=== PATIENT | male | born 1945 | race Caucasian/White ===

== ENCOUNTER → 2016-08-06 | Outpatient (CLI) | payer MEDICARE ==
[2016-08-06 09:50] LABS: ALBUMIN/GLOBULIN RATIO 1.33 (1.00-1.93); BILIRUBIN,TOTAL 1.1 MG/DL (0.2-1.0); CALCIUM LEVEL 8.9 MG/DL (8.8-10.2); CREATININE FOR GFR 1.57 MG/DL (0.70-1.30); GLOMERULAR FILTRATION RATE 46.7 (>42)
== END ==
LOC: M WUC 08:04
PROVIDERS: ATTEND Emergency Medicine
DX: E78.2 Mixed hyperlipidemia (principal); I10 Essential (primary) hypertension

== ENCOUNTER → 2016-09-24 | Outpatient (CLI) | payer MEDICARE ==
[~2016-09-24] VITALS: Ht 172.7 cm; Wt 71.2 kg
[~2016-09-24] MED LIST: LIPI20TA PO; LISI-538 PO; NS 1,000 ML IV ONE; PHENYLephrine HCL 500 MCG/5 ML (100MCG/ML) SYRINGE (J2370) As Ordered ONE; PROPOFOL 200 MG/20 ML VIAL As Ordered ONE
--- NOTE | 2016-09-24 08:55 | ROOR ---
Patient Name: Lakeshia Hurtado Procedure Date: 09/24/2016 8:02 AM Date of : 1945 Age: 71 Room: [facility] Gender: Male Note Status: Finalized Procedure: Colonoscopy Indications: Screening for colorectal malignant neoplasm Providers: Eric Ya MD Referring MD: LE PERAZA MD Requesting Provider: Medicines: Monitored Anesthesia Care Complications: No immediate complications. Procedure: Pre-Anesthesia Assessment: - Prior to the procedure, a History and Physical was performed, and patient medications and allergies were reviewed. The patient is competent. The risks and benefits of the procedure and the sedation options and risks were discussed with the patient. All questions were answered and informed consent was obtained. Patient identification and proposed procedure were verified by the physician, the nurse and the anesthesiologist in the endoscopy suite. Mental Status Examination: alert and oriented. Airway Examination: normal oropharyngeal airway and neck mobility. Respiratory Examination: clear to auscultation. CV Examination: normal. Prophylactic Antibiotics: The patient does not require prophylactic antibiotics. Prior Anticoagulants: The patient has taken no previous anticoagulant or antiplatelet agents. ASA Grade Assessment: II - A patient with mild systemic disease. After reviewing the risks and benefits, the patient was deemed in satisfactory condition to undergo the procedure. The anesthesia plan was to use monitored anesthesia care (MAC). Immediately prior to administration of medications, the patient was re-assessed for adequacy to receive sedatives. The heart rate, respiratory rate, oxygen saturations, blood pressure, adequacy of pulmonary ventilation, and response to care were monitored throughout the procedure. The physical status of the patient was re-assessed after the procedure. The Colonoscope was introduced through the anus and advanced to the cecum, identified by appendiceal orifice and ileocecal valve. The colonoscopy was technically difficult and complex. The patient tolerated the procedure well. The quality of the bowel preparation was good. Findings: The perianal and digital rectal examinations were normal. A 30 mm polyp was found in the mid transverse colon. The polyp was multi-lobulated. The polyp was removed with a hot snare. Polyp resection was incomplete. The resected tissue was retrieved. Estimated blood loss was minimal. Area was tattooed with an injection of 3 mL of Ami ink. No additional abnormalities were found on retroflexion. Impression: - One 30 mm polyp in the mid transverse colon, removed with a hot snare. Incomplete resection. Resected tissue retrieved. Tattooed. Recommendation: - Discharge patient to home (ambulatory). - Repeat colonoscopy in 1 month for retreatment. - Return to my office in 2 weeks. Eric Ya MD Eric Ya MD 09/24/2016 8:54:44 AM This report has been signed electronically. Number of Addenda: 0 Note Initiated On: 09/24/2016 8:02 AM Estimated Blood Loss: Estimated blood loss was minimal.
[2016-09-24 09:15] VITALS: BP 111/65
== END | disposition home or self-care (01) ==
LOC: M OPP 07:09
PROVIDERS: ATTEND Surgery
DX: R19.5 Other fecal abnormalities (principal); D12.3 Benign neoplasm of transverse colon; I10 Essential (primary) hypertension; E78.5 Hyperlipidemia, unspecified; R12 Heartburn; M19.90 Unspecified osteoarthritis, unspecified site; N40.0 Benign prostatic hyperplasia without lower urinary tract symptoms; Z79.899 Other long term (current) drug therapy; Z88.1 Allergy status to other antibiotic agents; Z80.6 Family history of leukemia; Z80.0 Family history of malignant neoplasm of digestive organs; Z87.891 Personal history of nicotine dependence
CPT/HCPCS: 45381; 45385; 88305; J2370

== ENCOUNTER 2017-04-16 07:45 | Day surgery (SDC) | payer MEDICARE ==
[~2017-04-16] VITALS: Ht 170.2 cm; Wt 76.7 kg
[~2017-04-16 07:45] MED LIST changes: +ASPI325T24 PO; -NS 1,000 ML IV ONE; -PHENYLephrine HCL 500 MCG/5 ML (100MCG/ML) SYRINGE (J2370) As Ordered ONE; -PROPOFOL 200 MG/20 ML VIAL As Ordered ONE
[2017-04-16] MEDS ORDERED: NS 1,000 ML IV ONE (08:30)
[2017-04-16] MEDS ORDERED: PROPOFOL 200 MG/20 ML VIAL As Ordered ONE ×2 (09:58→10:08)
--- NOTE | 2017-04-16 10:17 | ROOR ---
Patient Name: Lakeshia Hurtado Procedure Date: 04/16/2017 9:36 AM Date of : 1945 Age: 72 Room: [facility] Gender: Male Note Status: Finalized Procedure: Colonoscopy Indications: Therapeutic procedure for known colon mass Providers: Ramakrishna PETERSON MD Referring MD: LE PERAZA MD Requesting Provider: Medicines: Monitored Anesthesia Care Complications: No immediate complications. Procedure: Pre-Anesthesia Assessment: - The heart rate, respiratory rate, oxygen saturations, blood pressure, adequacy of pulmonary ventilation, and response to care were monitored throughout the procedure. The Colonoscope was introduced through the anus and advanced to the cecum, identified by appendiceal orifice and ileocecal valve. The colonoscopy was performed without difficulty. The patient tolerated the procedure well. The quality of the bowel preparation was good. Findings: The perianal and digital rectal examinations were normal. A frond-like/villous and sessile non-obstructing small mass was found in the proximal transverse colon. The mass measured three cm in length. In addition, its diameter measured four mm. The polyp was removed with a piecemeal technique using a hot snare. Polyp resection was incomplete, and the resected tissue was partially retrieved. The exam was otherwise normal throughout the examined colon. Impression: - Likely benign 3-4 cm polypoid lesion in the proximal transverse colon. Tissue was partially removed. Resection was INCOMPLETE. - The colon exam was otherwise normal throughout the examined colon. Recommendation: - If the pathology report is benign, then repeat colonoscopy for repeat piecemeal polypectomy in 4 months for additional endoscopic resection. - If the pathology is significantly dysplastic/malignant, then refer to a surgeon. - Await pathology results. - Telephone endoscopist for pathology results in 2 weeks. - No ibuprofen, naproxen, or other non-steroidal anti-inflammatory drugs for 10 days after polyp removal. Ramakrishna Peterson MD Ramakrishna PETERSON MD 04/16/2017 10:16:52 AM This report has been signed electronically. Number of Addenda: 0 Note Initiated On: 04/16/2017 9:36 AM Estimated Blood Loss: Estimated blood loss: none.
[2017-04-16 10:45] VITALS: BP 100/62
== END 2017-04-16 10:54 | disposition home or self-care (01) ==
LOC: M OPP 07:45
PROVIDERS: ATTEND Internal Medicine Gastroenterology
DX: D49.0 Neoplasm of unspecified behavior of digestive system (principal); K63.89 Other specified diseases of intestine; I10 Essential (primary) hypertension; E78.00 Pure hypercholesterolemia, unspecified; M19.90 Unspecified osteoarthritis, unspecified site; Z79.82 Long term (current) use of aspirin; Z79.899 Other long term (current) drug therapy; Z88.1 Allergy status to other antibiotic agents; Z87.891 Personal history of nicotine dependence

== ENCOUNTER → 2017-05-04 | Outpatient (REF) | payer MEDICARE ==
[2017-05-04 11:35] LABS: BASO % 0.6 % (0.0-1.0); EOS # 0.2 10^3/uL (0.0-0.50); EOS % 2.8 % (0.0-3.0); IMMATURE GRANULOCYTE % 0.3 % (0-0); LYMPH # 1.6 10^3/uL (1.5-4.5); LYMPH % 23.6 % (24.0-44.0); MEAN CORPUSCULAR HEMOGLOBIN 28.5 pg (27.0-33.0); MEAN CORPUSCULAR HGB CONC 32.8 g/dl (32.0-36.5); MEAN CORPUSCULAR VOLUME 86.9 fl (80.0-96.0); MONO # 0.4 10^3/uL (0.0-0.8); MONO % 5.9 % (0.0-5.0); NEUTROPHILS # 4.6 10^3/uL (1.8-7.7); NEUTROPHILS % 66.8 % (36.0-66.0); PLATELET COUNT, AUTOMATED 285 10^3/uL (150-450); RED CELL DISTRIBUTION WIDTH 12.1 % (11.5-14.5); WHITE BLOOD COUNT 6.8 10^3/uL (4.0-10.0)
[2017-05-04 13:01] LABS: CALCIUM LEVEL 8.7 MG/DL (8.8-10.2); CREATININE FOR GFR 1.48 MG/DL (0.70-1.30); GLOMERULAR FILTRATION RATE 49.9 (>42); POTASSIUM SERUM 4.9 MEQ/L (3.5-5.1)
== END ==
LOC: M LABDRAW1 10:22
PROVIDERS: ATTEND Emergency Medicine
DX: C18.4 Malignant neoplasm of transverse colon (principal)

== ENCOUNTER 2017-05-15 06:44 | Inpatient (IN) | payer MEDICARE ==
[2017-05-15] MEDS ORDERED: LIDOCAINE 1% MDV 20ML VIAL SQ (07:00)
[2017-05-15] MEDS: LR 1,000 ML IV ×4 (07:35→23:00)
[2017-05-15] MEDS: ALVIMOPAN 12 MG CAPSULE (ENTEREG) PO (07:35)
[2017-05-15] MEDS: LevoFLOXacin IV 500 MG in APPROPRIATE DILUENT 1 EA IV (07:45)
[2017-05-15] MEDS ORDERED: ROCURONIUM BROMIDE 50 MG/5 ML VIAL As Ordered ×2 (08:22→10:47)
[2017-05-15] MEDS ORDERED: HYDROmorphone HCL 2 MG/ML 1ML VIAL (J1170) As Ordered (08:22)
[2017-05-15] MEDS ORDERED: PROPOFOL 200 MG/20 ML VIAL As Ordered (08:22)
[2017-05-15] MEDS ORDERED: MIDAZOLAM INJ 2 MG/2 ML VIAL (J2250) As Ordered (08:22)
[2017-05-15] MEDS ORDERED: ONDANSETRON 4MG/2ML VIAL (J2405) As Ordered (08:22)
[2017-05-15] MEDS ORDERED: fentaNYL 100 MCG/2 ML INJECTION (J3010) As Ordered (08:22)
[2017-05-15] MEDS ORDERED: NEOSTIGMINE 10 MG/10 ML VIAL (J2710) As Ordered (08:22)
[2017-05-15] MEDS ORDERED: dexameTHASONE 4 MG/ML 1ML VIAL (J1100) As Ordered (08:22)
[2017-05-15] MEDS ORDERED: LIDOCAINE 2% INJ 100 MG/5 ML SDV (FOR ANES.) As Ordered (08:22)
[2017-05-15] MEDS ORDERED: GLYCOPYRROLATE INJ 0.2 MG/ML 2 ML VIAL As Ordered (08:22)
[2017-05-15] MEDS: metroNIDAZOLE 500 MG in APPROPRIATE DILUENT 1 EA IV (09:01)
[2017-05-15] MEDS: LIDOCAINE 1% SDV INJ 30 ML VIAL As Ordered (10:06)
[2017-05-15] MEDS: BUPIVACAINE HCL 0.25% 30 ML VIAL As Ordered ×2 (10:06→12:45)
[2017-05-15] MEDS ORDERED: PHENYLEPHRINE INJ 10MG/ML VIAL (J2370) As Ordered (10:26)
[2017-05-15] MEDS ORDERED: ePHEDrine SULFATE 25 MG/5 ML(5MG/ML) SYRINGE As Ordered (10:26)
[2017-05-15] MEDS: BUPIVACAINE LIPOSOME/PF 1.3% 20 ML VIAL (13.3MG/ML)(EXPAREL) As Ordered (12:45)
[2017-05-15] MEDS ORDERED: MORPHINE 4 MG/ML 1ML SYRINGE IV (13:15)
[2017-05-15] MEDS ORDERED: NORCO, ANEXSIA 5/325MG TABLET (HYDROcodone/ACETAMINOPHEN) PO (13:15)
[2017-05-15] MEDS ORDERED: ONDANSETRON 4MG/2ML VIAL (J2405) IV ×2 (13:15→13:30)
[2017-05-15] MEDS ORDERED: KETOROLAC 30 MG/ML VIAL (J1885) IV (13:15)
[2017-05-15] MEDS ORDERED: ACETAMINOPHEN TAB 650MG DOSE (2X325MG) PO (13:15)
[2017-05-15] MEDS ORDERED: METOCLOPRAMIDE INJ 10MG/2ML VIAL (J2765) IV (13:30)
[2017-05-15] MEDS ORDERED: fentaNYL 100 MCG/2 ML INJECTION (J3010) IV (13:30)
[2017-05-15] MEDS ORDERED: MORPHINE 10 MG/ML 1ML VIAL IV (13:30)
[2017-05-15] MEDS: NORCO, ANEXSIA 5/325MG TABLET (HYDROcodone/ACETAMINOPHEN) PO ×2 (17:38→22:29)
[2017-05-15] MEDS: SENOKOT S TAB PO (21:56)
[2017-05-16 05:25] LABS: HEMATOCRIT 36.2 % (42.0-52.0); HEMOGLOBIN 12.2 g/dl (14.0-18.0); IMMATURE GRANULOCYTE % 0.1 % (0-0); LYMPH # 0.4 10^3/uL (1.5-4.5); LYMPH % 4.6 % (24.0-44.0); MEAN CORPUSCULAR HEMOGLOBIN 28.9 pg (27.0-33.0); MEAN CORPUSCULAR HGB CONC 33.7 g/dl (32.0-36.5); MEAN CORPUSCULAR VOLUME 85.8 fl (80.0-96.0); MONO # 0.6 10^3/uL (0.0-0.8); MONO % 6.9 % (0.0-5.0); NEUTROPHILS # 7.3 10^3/uL (1.8-7.7); NEUTROPHILS % 88.4 % (36.0-66.0); PLATELET COUNT, AUTOMATED 221 10^3/uL (150-450); RED BLOOD COUNT 4.22 10^6/uL (4.30-6.10); RED CELL DISTRIBUTION WIDTH 12.2 % (11.5-14.5); WHITE BLOOD COUNT 8.2 10^3/uL (4.0-10.0)
[2017-05-16 05:40] LABS: ANION GAP 6 MEQ/L (8-16); BLOOD UREA NITROGEN 25 MG/DL (7-18); CALCIUM LEVEL 8.2 MG/DL (8.8-10.2); CARBON DIOXIDE LEVEL 26 MEQ/L (21-32); CHLORIDE LEVEL 108 MEQ/L (98-107); CREATININE FOR GFR 1.44 MG/DL (0.70-1.30); GLOMERULAR FILTRATION RATE 51.5 (>42); GLUCOSE, FASTING 144 MG/DL (83-110); POTASSIUM SERUM 4.7 MEQ/L (3.5-5.1); SODIUM LEVEL 140 MEQ/L (136-145)
[2017-05-16] MEDS: LR 1,000 ML IV ×3 (06:12→22:09)
[2017-05-16] MEDS: ENOXAPARIN 40 MG/0.4 ML SYRINGE (J1650) SC (07:44)
[2017-05-16] MEDS: ATORVASTATIN 20 MG TAB PO (07:45)
[2017-05-16] MEDS: LISINOPRIL 20 MG TAB PO (07:45)
[2017-05-16] MEDS: SENOKOT S TAB PO ×2 (07:45→20:48)
[2017-05-16] MEDS: NORCO, ANEXSIA 5/325MG TABLET (HYDROcodone/ACETAMINOPHEN) PO ×3 (07:46→20:47)
[2017-05-17 05:35] LABS: BASO % 0.1 % (0.0-1.0); HEMATOCRIT 35.9 % (42.0-52.0); IMMATURE GRANULOCYTE % 0.1 % (0-0); LYMPH # 0.8 10^3/uL (1.5-4.5); LYMPH % 9.3 % (24.0-44.0); MEAN CORPUSCULAR HEMOGLOBIN 28.8 pg (27.0-33.0); MEAN CORPUSCULAR HGB CONC 33.4 g/dl (32.0-36.5); MEAN CORPUSCULAR VOLUME 86.3 fl (80.0-96.0); MONO # 0.6 10^3/uL (0.0-0.8); MONO % 6.8 % (0.0-5.0); NEUTROPHILS # 6.8 10^3/uL (1.8-7.7); NEUTROPHILS % 83.7 % (36.0-66.0); PLATELET COUNT, AUTOMATED 225 10^3/uL (150-450); RED BLOOD COUNT 4.16 10^6/uL (4.30-6.10); RED CELL DISTRIBUTION WIDTH 12.3 % (11.5-14.5); WHITE BLOOD COUNT 8.1 10^3/uL (4.0-10.0)
[2017-05-17 05:49] LABS: ANION GAP 9 MEQ/L (8-16); BLOOD UREA NITROGEN 19 MG/DL (7-18); CALCIUM LEVEL 8.4 MG/DL (8.8-10.2); CARBON DIOXIDE LEVEL 28 MEQ/L (21-32); CHLORIDE LEVEL 104 MEQ/L (98-107); CREATININE FOR GFR 1.27 MG/DL (0.70-1.30); GLOMERULAR FILTRATION RATE 59.5 (>42); GLUCOSE, FASTING 97 MG/DL (83-110); POTASSIUM SERUM 4.3 MEQ/L (3.5-5.1); SODIUM LEVEL 141 MEQ/L (136-145)
[2017-05-17] MEDS: LR 1,000 ML IV (06:19)
[2017-05-17] MEDS: SENOKOT S TAB PO ×2 (08:20→21:24)
[2017-05-17] MEDS: ATORVASTATIN 20 MG TAB PO (08:20)
[2017-05-17] MEDS: ENOXAPARIN 40 MG/0.4 ML SYRINGE (J1650) SC (08:21)
[2017-05-17] MEDS: LISINOPRIL 20 MG TAB PO (08:21)
[2017-05-18 06:36] LABS: BASO % 0.1 % (0.0-1.0); EOS % 0.1 % (0.0-3.0); HEMATOCRIT 36.8 % (42.0-52.0); HEMOGLOBIN 12.2 g/dl (14.0-18.0); IMMATURE GRANULOCYTE % 0.4 % (0-0); LYMPH # 1.1 10^3/uL (1.5-4.5); LYMPH % 14.7 % (24.0-44.0); MEAN CORPUSCULAR HEMOGLOBIN 28.7 pg (27.0-33.0); MEAN CORPUSCULAR HGB CONC 33.2 g/dl (32.0-36.5); MEAN CORPUSCULAR VOLUME 86.6 fl (80.0-96.0); MONO # 0.6 10^3/uL (0.0-0.8); MONO % 7.1 % (0.0-5.0); NEUTROPHILS % 77.6 % (36.0-66.0); PLATELET COUNT, AUTOMATED 231 10^3/uL (150-450); RED BLOOD COUNT 4.25 10^6/uL (4.30-6.10); WHITE BLOOD COUNT 7.8 10^3/uL (4.0-10.0)
[2017-05-18 07:05] LABS: ANION GAP 7 MEQ/L (8-16); BLOOD UREA NITROGEN 19 MG/DL (7-18); CALCIUM LEVEL 8.6 MG/DL (8.8-10.2); CARBON DIOXIDE LEVEL 29 MEQ/L (21-32); CHLORIDE LEVEL 103 MEQ/L (98-107); CREATININE FOR GFR 1.34 MG/DL (0.70-1.30); GLOMERULAR FILTRATION RATE 55.9 (>42); GLUCOSE, FASTING 89 MG/DL (83-110); POTASSIUM SERUM 4.1 MEQ/L (3.5-5.1); SODIUM LEVEL 139 MEQ/L (136-145)
[2017-05-18] MEDS: ATORVASTATIN 20 MG TAB PO (09:43)
[2017-05-18] MEDS: SENOKOT S TAB PO (09:43)
[2017-05-18] MEDS: LISINOPRIL 20 MG TAB PO (09:45)
[2017-05-18] MEDS: ENOXAPARIN 40 MG/0.4 ML SYRINGE (J1650) SC (09:47)
== END 2017-05-18 10:38 | disposition home or self-care (01) | DRG 331 ==
LOC: M OR 06:44 → M MSPAV 14:23
PROC: 0DBL0ZZ Excision of Transverse Colon, Open Approach (ICD-10-PCS; principal; 2017-05-15 09:00)
DX: D12.6 Benign neoplasm of colon, unspecified (principal); Z79.899 Other long term (current) drug therapy; Z88.1 Allergy status to other antibiotic agents

== ENCOUNTER → 2018-06-09 | Outpatient (CLI) | payer MEDICARE ==
[~2018-06-09] MED LIST changes: -ASPI325T24 PO; +ASPI325T25 PO; +NORCOTAB PO
--- NOTE | 2018-06-09 17:44 | REP ---
CT ABDOMEN AND PELVIS WITHOUT CONTRAST: CT abdomen and pelvis was performed without oral or IV contrast. Sagittal and coronal reconstruction images are performed. Visualized lung bases demonstrate mild interstitial fibrotic change. The liver, gallbladder, spleen, adrenals and pancreas are grossly unremarkable. There are multiple bilateral renal cysts present. There is left renal atrophy. There is no hydronephrosis or renal calculus. Moderate atherosclerotic calcification is seen of the abdominal aorta. There is fusiform aneurysmal dilatation of the infrarenal portion of the abdominal aorta. Maximum AP diameter is 4.1 cm. This extends for a length of about 5 cm. There is no adenopathy. There is no free air or free fluid. There is no bowel wall thickening. Multiple metallic clips are seen in the upper abdomen. No pelvic mass is seen. Urinary bladder is not well distended and not optimally evaluated. There is a small inguinal hernia containing fat. IMPRESSION: Fusiform aneurysmal dilatation of the distal abdominal aorta has a maximum AP diameter of 4.1 cm. This extends for a length of about 5 cm. Multiple bilateral renal cysts with left renal atrophy. Small left inguinal hernia contains fat. Electronically Signed by Bandar Lundberg MD 06/10/2018 07:41 P
== END ==
LOC: M RAD 14:42
PROVIDERS: ATTEND Surgery Vascular Surgery
DX: I71.4 Abdominal aortic aneurysm, without rupture (principal); N28.1 Cyst of kidney, acquired; K40.90 Unilateral inguinal hernia, without obstruction or gangrene, not specified as recurrent; N26.1 Atrophy of kidney (terminal)

== ENCOUNTER 2018-07-13 08:24 | Day surgery (SDC) | payer MEDICARE ==
[~2018-07-13] VITALS: Ht 170.2 cm; Wt 73.5 kg
[~2018-07-13 08:24] MED LIST changes: +AMLO10TA5 PO; +ANTA500C PO; +ASPI1TAB20 PO; +LISI10TA4 PO; +OMEP40CA2 PO
[2018-07-13] MEDS ORDERED: NS 1,000 ML IV ONE (08:45)
[2018-07-13] MEDS ORDERED: PROPOFOL 200 MG/20 ML VIAL As Ordered ONE (09:28)
[2018-07-13] MEDS ORDERED: LIDOCAINE 2% INJ 100 MG/5 ML SDV (FOR ANES.) As Ordered ONE (09:28)
[2018-07-13] MEDS ORDERED: PHENYLephrine HCL 500 MCG/5 ML (100MCG/ML) SYRINGE (J2370) As Ordered ONE (09:52)
--- NOTE | 2018-07-13 10:03 | ROOR ---
Patient Name: Lakeshia Hurtado Procedure Date: 07/13/2018 9:38 AM Date of : 1945 Age: 73 Room: [facility] Gender: Male Note Status: Finalized Procedure: Colonoscopy Indications: High risk colon cancer surveillance: Personal history of colon cancer, Last colonoscopy: March 2017 Providers: Ramakrishna PETERSON MD Referring MD: Ramila Agarwal MD Requesting Provider: Medicines: Monitored Anesthesia Care Complications: No immediate complications. Procedure: Pre-Anesthesia Assessment: - The heart rate, respiratory rate, oxygen saturations, blood pressure, adequacy of pulmonary ventilation, and response to care were monitored throughout the procedure. The Colonoscope was introduced through the anus and advanced to the ileocolonic anastomosis. The colonoscopy was performed without difficulty. The patient tolerated the procedure well. The quality of the bowel preparation was good. Findings: The perianal and digital rectal examinations were normal. Two sessile polyps were found in the rectum and sigmoid colon. The polyps were 4 to 5 mm in size. These polyps were removed with a cold snare. Resection and retrieval were complete. There was evidence of a prior functional end-to-end ileo-colonic anastomosis in the mid transverse colon. This was patent and was characterized by healthy appearing mucosa. The anastomosis was traversed. Small Internal Hemorrhoids. Impression: - Two 4 to 5 mm polyps in the rectum and in the sigmoid colon, removed with a cold snare. Resected and retrieved. - Small Internal Hemorrhoids. - Patent functional end-to-end ileo-colonic anastomosis, characterized by healthy appearing mucosa. Recommendation: - Repeat colonoscopy in 3 years for surveillance based on personal history of colon cancer. Ramakrishna Peterson MD Ramakrishna PETERSON MD 07/13/2018 10:02:51 AM This report has been signed electronically. Number of Addenda: 0 Note Initiated On: 07/13/2018 9:38 AM Estimated Blood Loss: Estimated blood loss: none.
[2018-07-13 10:20] VITALS: BP 118/55
== END 2018-07-13 10:29 | disposition home or self-care (01) ==
LOC: M OPP 08:24
PROVIDERS: ATTEND Internal Medicine Gastroenterology
DX: K62.1 Rectal polyp (principal); Z08 Encounter for follow-up examination after completed treatment for malignant neoplasm; Z85.038 Personal history of other malignant neoplasm of large intestine; D12.5 Benign neoplasm of sigmoid colon; Z98.0 Intestinal bypass and anastomosis status; K64.8 Other hemorrhoids; Z79.82 Long term (current) use of aspirin; Z79.899 Other long term (current) drug therapy; Z88.8 Allergy status to other drugs, medicaments and biological substances; Z85.46 Personal history of malignant neoplasm of prostate; I71.4 Abdominal aortic aneurysm, without rupture
CPT/HCPCS: 45385; 88305; J2370

== ENCOUNTER → 2019-01-11 | Outpatient (CLI) | payer MEDICARE ==
[~2019-01-11] MED LIST changes: -ANTA500C PO; +ASPI-255 PO; +ASPI-524 PO; -ASPI1TAB20 PO; -ASPI325T25 PO; +CALC1CHW3 PO; +HYDR-3715 PO; -NORCOTAB PO
--- NOTE | 2019-01-11 08:39 | REP ---
Abdominal aorta ultrasound: Abdominal Aortic Measurements are as follows: Proximal 2.2 cm AP 2.2 cm TRV Renal Artery Level obscured cm AP obscured cm TRV Mid Aorta 4.2 cm AP 4.3 cm TRV Distal Aorta 1.6 cm AP 2.1 cm TRV R Iliac Artery 1.0 cm AP 1.1 cm TRV L Iliac Artery 1.0 cm AP 1.1 cm TRV There is an aneurysm of the mid abdominal aorta measuring 0.2 cm AP by 4.3 cm transverse and spanning a craniocaudad length of 6.6 cm. Electronically Signed by Bandar Pedraza MD 01/11/2019 08:30 A
== END ==
LOC: M RAD 07:57
PROVIDERS: ATTEND Surgery Vascular Surgery
DX: I71.4 Abdominal aortic aneurysm, without rupture (principal)

== ENCOUNTER 2019-02-17 10:58 | Day surgery (SDC) | payer MEDICARE ==
[~2019-02-17] VITALS: Ht 170.2 cm; Wt 73.5 kg
[~2019-02-17 10:58] MED LIST changes: -ASPI-524 PO; +ASPI325T57 PO; +BALANCED SALT IRRIGATION SOLUTION 500ML BAG (FOR OR EYE MACHINE) As Ordered ONE; +DUOVISC (0.50ML VISCOAT/0.55ML PROVISC) OPHTH KIT As Ordered ONE; +LIDOCAINE 0.75%/EPINEPHRINE 0.025% IN BSS 0.8ML SYR INTRACAMERAL--OR ONLY As Ordered ONE; +MIDAZOLAM INJ 2 MG/2 ML VIAL (J2250) As Ordered ONE; +OFLOXACIN 0.3 % (OCUFLOX) OPTH SOL 5ML OS ONE; +PHENYLEPHRINE 2.5% OPHTH SOL 2ML OS ONE; +POVIDONE-IODINE 5% OPHTH PREP SOL 30ML As Ordered ONE; +PROPARACAINE 0.5% OPHTH SOL 15ML OS ONE; +TROPICAMIDE 1% OPHTH SOLN 2ML OS ONE; +fentaNYL 100 MCG/2 ML INJECTION (J3010) As Ordered ONE
[2019-02-17 14:00] VITALS: BP 127/68
--- NOTE | 2019-02-22 17:59 | RO ---
DATE OF PROCEDURE: 02/17/2019 PREOPERATIVE DIAGNOSIS: 1. Visually significant nuclear sclerotic cataract right eye. POSTOPERATIVE DIAGNOSIS: 1. Visually significant nuclear sclerotic cataract right eye. PROCEDURE: 1. Cataract extraction with use of phacoemulsification and placement of intraocular lens, AU00T0, 24.5 D, right eye. SURGEON: Chuy Jeffrey DO LAST SORTER: None. ANESTHESIA: Local with monitored anesthesia care (MAC). COMPLICATIONS: None. POSTOPERATIVE CONDITION: Stable. INDICATIONS FOR SURGERY: 1. Blurred vision affecting patients activities of daily living. DESCRIPTION OF PROCEDURE: The patient was seen in the preoperative area and properly identified. The correct operative eye was identified and marked. The patient received topical anesthetic, antibiotics, and topical dilating drops. The patient was then transferred to the operating room. The correct side was re-identified, and a time-out was performed. The eye was prepped and draped in a sterile fashion. The eyelids were isolated with Tegaderm tape, and the lids were held open with an adjustable speculum. A 1.0 mm paracentesis incision was made. Intraocular preservative-free Shugarcaine was then injected into the anterior chamber. Viscoelastic was then injected into the anterior chamber through the paracentesis. Using a 2.4 mm sharp-tipped keratome, the anterior chamber was entered via a temporal clear cornea incision. A continuous curvilinear capsulorrhexis was created with Utrata forceps. Hydrodissection was performed with balanced salt solution (BSS) on a blunt cannula until the nucleus was able to rotate freely. The crystalline lens was phacoemulsified and aspirated. Irrigation/aspiration was used to remove the cortical material. Cohesive viscoelastic was placed into the capsular bag to deepen it. The implant was placed into the capsular bag and allowed to unfold. Placement was confirmed by visualizing the anterior capsulorrhexis. Irrigation/aspiration was used to remove the viscoelastic. The clear corneal incision was hydrated with BSS on a blunt cannula. The lens was well positioned. The incisions were then tested for leaks and found to be negative. The eye was then palpated for appropriate pressure and adjusted accordingly with BSS. The eyelid speculum was then carefully removed. A shield was placed over the eye. The patient tolerated the procedure well and was discharged to the recovery unit in a stable condition.
== END 2019-02-17 14:15 | disposition home or self-care (01) ==
LOC: M SDC 10:58
PROVIDERS: ATTEND Ophthalmology
DX: H25.11 Age-related nuclear cataract, right eye (principal); I10 Essential (primary) hypertension; I71.4 Abdominal aortic aneurysm, without rupture; Z79.899 Other long term (current) drug therapy; Z85.46 Personal history of malignant neoplasm of prostate; K21.9 Gastro-esophageal reflux disease without esophagitis; Z87.891 Personal history of nicotine dependence; Z88.1 Allergy status to other antibiotic agents; Z88.8 Allergy status to other drugs, medicaments and biological substances
CPT/HCPCS: 66984; J2250; J3010; V2632

== ENCOUNTER → 2019-02-28 | Outpatient (CLI) | payer MEDICARE ==
[~2019-02-28] MED LIST changes: -BALANCED SALT IRRIGATION SOLUTION 500ML BAG (FOR OR EYE MACHINE) As Ordered ONE; -DUOVISC (0.50ML VISCOAT/0.55ML PROVISC) OPHTH KIT As Ordered ONE; -LIDOCAINE 0.75%/EPINEPHRINE 0.025% IN BSS 0.8ML SYR INTRACAMERAL--OR ONLY As Ordered ONE; -MIDAZOLAM INJ 2 MG/2 ML VIAL (J2250) As Ordered ONE; -OFLOXACIN 0.3 % (OCUFLOX) OPTH SOL 5ML OS ONE; -OMEP40CA2 PO; +OMEP40CA97 PO; -PHENYLEPHRINE 2.5% OPHTH SOL 2ML OS ONE; -POVIDONE-IODINE 5% OPHTH PREP SOL 30ML As Ordered ONE; -PROPARACAINE 0.5% OPHTH SOL 15ML OS ONE; -TROPICAMIDE 1% OPHTH SOLN 2ML OS ONE; -fentaNYL 100 MCG/2 ML INJECTION (J3010) As Ordered ONE
[2019-02-28 09:18] LABS: BASO # 0.1 10^3/uL (0.0-0.2); BASO % 0.8 % (0.0-1.0); EOS # 0.5 10^3/uL (0.0-0.5); EOS % 7.2 % (0.0-3.0); HEMATOCRIT 43.8 % (42.0-52.0); HEMOGLOBIN 14.1 g/dl (13.5-17.5); LYMPH # 1.8 10^3/uL (1.5-5.0); LYMPH % 27.9 % (24.0-44.0); MEAN CORPUSCULAR HGB CONC 32.2 g/dl (32.0-36.5); MEAN CORPUSCULAR VOLUME 86.9 fl (80.0-96.0); MONO # 0.5 10^3/uL (0.0-0.8); NEUTROPHILS # 3.6 10^3/uL (1.5-8.5); NEUTROPHILS % 55.9 % (36.0-66.0); PLATELET COUNT, AUTOMATED 221 10^3/uL (150-450); RED BLOOD COUNT 5.04 10^6/uL (4.30-6.10); WHITE BLOOD COUNT 6.4 10^3/uL (4.0-10.0)
[2019-02-28 09:24] LABS: ALBUMIN 4.2 GM/DL (3.2-5.2); BILIRUBIN,TOTAL 1.1 MG/DL (0.2-1.0); CALCIUM LEVEL 9.1 MG/DL (8.8-10.2); CHOLESTEROL RISK RATIO 2.867 (<5); CREATININE FOR GFR 1.82 MG/DL (0.70-1.30); GLOMERULAR FILTRATION RATE 39.1 (>42); POTASSIUM SERUM 4.8 MEQ/L (3.5-5.1); TOTAL PROTEIN 7.4 GM/DL (6.4-8.2)
[2019-02-28 10:12] LABS: HEMOGLOBIN A1c 6.1 %
== END ==
LOC: M WUC 08:03
PROVIDERS: ATTEND Physician Assistant
DX: N18.3 Chronic kidney disease, stage 3 (moderate) (principal); C18.4 Malignant neoplasm of transverse colon; R73.01 Impaired fasting glucose; E78.2 Mixed hyperlipidemia

== ENCOUNTER 2019-04-28 08:24 | Day surgery (SDC) | payer MEDICARE ==
[~2019-04-28] VITALS: Ht 170.2 cm; Wt 72.2 kg
[~2019-04-28 08:24] MED LIST changes: +BALANCED SALT IRRIGATION SOLUTION 500ML BAG (FOR OR EYE MACHINE) As Ordered ONE; +DUOVISC (0.50ML VISCOAT/0.55ML PROVISC) OPHTH KIT As Ordered ONE; +LIDOCAINE 0.75%/EPINEPHRINE 0.025% IN BSS 0.8ML SYR INTRACAMERAL--OR ONLY As Ordered ONE; +LIDOCAINE 1% MDV 20ML VIAL SQ PRN; +OFLOXACIN 0.3 % (OCUFLOX) OPTH SOL 5ML OS ONE; +PHENYLEPHRINE 2.5% OPHTH SOL 2ML OS ONE; +POVIDONE-IODINE 5% OPHTH PREP SOL 30ML As Ordered ONE; +PROPARACAINE 0.5% OPHTH SOL 15ML OS ONE; +TROPICAMIDE 1% OPHTH SOLN 2ML OS ONE
[2019-04-28] MEDS ORDERED: MIDAZOLAM INJ 2 MG/2 ML VIAL (J2250) As Ordered ONE (10:04)
[2019-04-28] MEDS ORDERED: fentaNYL 100 MCG/2 ML INJECTION (J3010) As Ordered ONE (10:04)
[2019-04-28 11:20] VITALS: BP 108/59
--- NOTE | 2019-04-29 22:46 | RO ---
DATE OF PROCEDURE: 04/28/2019 PREOPERATIVE DIAGNOSIS: 1. Visually significant nuclear sclerotic cataract left eye. POSTOPERATIVE DIAGNOSIS: 1. Visually significant nuclear sclerotic cataract left eye. PROCEDURE: 1. Cataract extraction with use of phacoemulsification and placement of intraocular lens, AU00T0, 25.5 D, left eye. SURGEON: Chuy Jeffrey DO SOFTWARE SALES REPRESENTATIVE: None. ANESTHESIA: Local with monitored anesthesia care (MAC). COMPLICATIONS: None. POSTOPERATIVE CONDITION: Stable. INDICATIONS FOR SURGERY: 1. Blurred vision affecting patients activities of daily living. DESCRIPTION OF PROCEDURE: The patient was seen in the preoperative area and properly identified. The correct operative eye was identified and marked. The patient received topical anesthetic, antibiotics, and topical dilating drops. The patient was then transferred to the operating room. The correct side was re-identified, and a time-out was performed. The eye was prepped and draped in a sterile fashion. The eyelids were isolated with Tegaderm tape, and the lids were held open with an adjustable speculum. A 1.0 mm paracentesis incision was made. Intraocular preservative-free Shugarcaine was then injected into the anterior chamber. Viscoelastic was then injected into the anterior chamber through the paracentesis. Using a 2.4 mm sharp-tipped keratome, the anterior chamber was entered via a temporal clear cornea incision. A continuous curvilinear capsulorrhexis was created with Utrata forceps. Hydrodissection was performed with balanced salt solution (BSS) on a blunt cannula until the nucleus was able to rotate freely. The crystalline lens was phacoemulsified and aspirated. Irrigation/aspiration was used to remove the cortical material. Cohesive viscoelastic was placed into the capsular bag to deepen it. The implant was placed into the capsular bag and allowed to unfold. Placement was confirmed by visualizing the anterior capsulorrhexis. Irrigation/aspiration was used to remove the viscoelastic. The clear corneal incision was hydrated with BSS on a blunt cannula. The lens was well positioned. The incisions were then tested for leaks and found to be negative. The eye was then palpated for appropriate pressure and adjusted accordingly with BSS. The eyelid speculum was then carefully removed. A shield was placed over the eye. The patient tolerated the procedure well and was discharged to the recovery unit in a stable condition.
== END 2019-04-28 11:32 | disposition home or self-care (01) ==
LOC: M SDC 08:24
PROVIDERS: ATTEND Ophthalmology
DX: H25.12 Age-related nuclear cataract, left eye (principal); I10 Essential (primary) hypertension; E78.5 Hyperlipidemia, unspecified; K21.9 Gastro-esophageal reflux disease without esophagitis; I71.4 Abdominal aortic aneurysm, without rupture; Z85.46 Personal history of malignant neoplasm of prostate; Z88.1 Allergy status to other antibiotic agents; Z88.5 Allergy status to narcotic agent; Z79.899 Other long term (current) drug therapy
CPT/HCPCS: 66984; J2250; J3010; V2632

== ENCOUNTER → 2019-08-01 | Outpatient (CLI) | payer BC, MEDICARE ==
[~2019-08-01] MED LIST changes: -BALANCED SALT IRRIGATION SOLUTION 500ML BAG (FOR OR EYE MACHINE) As Ordered ONE; -DUOVISC (0.50ML VISCOAT/0.55ML PROVISC) OPHTH KIT As Ordered ONE; -LIDOCAINE 0.75%/EPINEPHRINE 0.025% IN BSS 0.8ML SYR INTRACAMERAL--OR ONLY As Ordered ONE; -LIDOCAINE 1% MDV 20ML VIAL SQ PRN; -OFLOXACIN 0.3 % (OCUFLOX) OPTH SOL 5ML OS ONE; -PHENYLEPHRINE 2.5% OPHTH SOL 2ML OS ONE; -POVIDONE-IODINE 5% OPHTH PREP SOL 30ML As Ordered ONE; -PROPARACAINE 0.5% OPHTH SOL 15ML OS ONE; -TROPICAMIDE 1% OPHTH SOLN 2ML OS ONE
--- NOTE | 2019-08-01 11:27 | REP ---
ABDOMINAL AORTIC SONOGRAPHY: HISTORY: Abdominal aortic aneurysm without rupture. COMPARISON STUDY: January 11, 2019 FINDINGS: The abdominal aorta measures 2.2 x 2.6 cm in AP by transverse dimension proximally at the diaphragmatic hiatus. Bowel gas obscures the aorta at the level of the main renal arteries. At mid aortic level, there is a 4.3 x 4.2 cm AP by transverse abdominal aortic aneurysm. This measures 6.5 cm in length and is felt to be unchanged from the comparison study. Right and left common iliac arteries measure 1.9 and 1.4 cm in AP dimension, respectively. The study is felt to be essentially unchanged from the comparison exam. IMPRESSION: 4.2 x 5.0 cm infrarenal abdominal aortic aneurysm, essentially unchanged. Electronically Signed by Ronny Chu MD 08/01/2019 12:36 P
== END ==
LOC: M RAD 07:55
PROVIDERS: ATTEND Physician Assistant
DX: I71.4 Abdominal aortic aneurysm, without rupture (principal)

== ENCOUNTER → 2020-02-08 | Outpatient (CLI) | payer BC, MEDICARE ==
[~2020-02-08] MED LIST changes: -AMLO10TA5 PO; +AMLO1TAB25 PO
--- NOTE | 2020-02-16 10:54 | REP ---
CT ABDOMEN AND PELVIS WITHOUT IV OR ORAL CONTRAST HISTORY: Abdominal aortic aneurysm without rupture. Comparison CT study June 09, 2018. CT FINDINGS: Preliminary digital job coach radiograph demonstrates an unremarkable bowel gas pattern. The liver is normal in size, homogeneous in texture. The spleen is unremarkable. Gallbladder and pancreas show no abnormality. No adrenal mass lesion is observed. There are bilateral renal cortical cysts. There is a hyperdense cortical cyst in the right kidney posteriorly measuring 1.3 cm in diameter. The largest cyst is a peripheral cyst on the left measuring 5.3 cm in diameter. These findings are essentially unchanged. No hydronephrosis is evident. There is an infrarenal abdominal aortic aneurysm again seen measuring 4.1 cm in greatest anteroposterior dimension. This is unchanged from the June 09, 2018, study. No perianeurysmal fibrosis or hemorrhage is seen. There are surgical clips in the right mid abdomen mesentery, and a right colon resection has been performed with anastomosis to the transverse colon. No large or small bowel mass is seen. No evidence of obstruction. Seminal vesicles, prostate, and urinary bladder are unremarkable. No abdominal wall defect is seen. There is a hydrocele in the left scrotum. No bony destructive lesion is appreciated. IMPRESSION: 4.1 cm infrarenal abdominal aortic aneurysm unchanged from the comparison CT study June 09, 2018. Status post right colon resection. Multiple renal cysts. MTDD
--- NOTE | 2020-02-16 10:54 | REP ---
CT STUDY CHEST WITHOUT CONTRAST HISTORY: Abdominal aortic aneurysm without rupture. COMPARISON CHEST CT: None. CT FINDINGS: Digital preliminary boiler engineer radiograph demonstrates hyperinflated lungs. Emphysematous changes are noted in the upper lobes and to a lesser extent the lower lobes. There is pleural parenchymal fibrosis and subsegmental atelectasis in the right middle lobe. There is peribronchial thickening consistent with bronchitis and there are some areas of inspissated endobronchial secretions in the lower lobes bilaterally. No mass or infiltrate is appreciated. There is no evidence of mediastinal adenopathy or hilar adenopathy. There are minimal vascular calcifications in the aortic arch. No aneurysm is seen. The ascending aortic dimension is 3.6 cm anterior to posterior. This is measured at the level of the right main pulmonary artery. The descending aorta at this level measures 2.9 cm. No aneurysm is visible. No extrathoracic mass or adenopathy is observed. Bone window settings show no bony destructive lesion. IMPRESSION: Emphysematous changes and changes consistent with bronchitis. No evidence of thoracic aortic aneurysm. MTDD
== END ==
LOC: M RAD 09:33
PROVIDERS: ATTEND Physician Assistant
DX: I71.4 Abdominal aortic aneurysm, without rupture (principal)

== ENCOUNTER → 2020-04-05 | Outpatient (CLI) | payer BC, MEDICARE ==
[2020-04-05 10:02] LABS: BASO % 0.6 % (0.0-1.0); EOS # 0.3 10^3/uL (0.0-0.5); EOS % 4.1 % (0.0-3.0); HEMATOCRIT 41.9 % (42.0-52.0); HEMOGLOBIN 12.5 g/dl (13.5-17.5); LYMPH # 2.1 10^3/uL (1.5-5.0); LYMPH % 29.2 % (24.0-44.0); MEAN CORPUSCULAR HEMOGLOBIN 25.5 pg (27.0-33.0); MEAN CORPUSCULAR HGB CONC 29.8 g/dl (32.0-36.5); MEAN CORPUSCULAR VOLUME 85.3 fl (80.0-96.0); MONO # 0.7 10^3/uL (0.0-0.8); MONO % 9.5 % (0.0-5.0); NEUTROPHILS # 4.1 10^3/uL (1.5-8.5); NEUTROPHILS % 56.2 % (36.0-66.0); PLATELET COUNT, AUTOMATED 238 10^3/uL (150-450); RED BLOOD COUNT 4.91 10^6/uL (4.30-6.10); WHITE BLOOD COUNT 7.3 10^3/uL (4.0-10.0)
[2020-04-05 10:25] LABS: ALBUMIN 3.9 GM/DL (3.2-5.2); BILIRUBIN,TOTAL 0.9 MG/DL (0.2-1.0); CALCIUM LEVEL 8.8 MG/DL (8.8-10.2); CHOLESTEROL RISK RATIO 3.326 (<5); CREATININE FOR GFR 1.97 MG/DL (0.70-1.30); GLOMERULAR FILTRATION RATE 35.6 (>42); POTASSIUM SERUM 4.8 MEQ/L (3.5-5.1); TOTAL PROTEIN 7.3 GM/DL (6.4-8.2)
[2020-04-05 10:30] LABS: HEMOGLOBIN A1c 5.9 %
== END ==
LOC: M WUC 08:04
PROVIDERS: ATTEND Physician Assistant
DX: E78.2 Mixed hyperlipidemia (principal); I12.9 Hypertensive chronic kidney disease with stage 1 through stage 4 chronic kidney disease, or unspecified chronic kidney disease; N18.30 Chronic kidney disease, stage 3 unspecified; R73.01 Impaired fasting glucose

== ENCOUNTER → 2020-06-11 | Outpatient (CLI) | payer BC, MEDICARE ==
[~2020-06-11] MED LIST changes: -LISI-538 PO; +LISI10TA22 PO; -LISI10TA4 PO; +LISI20TA33 PO
--- NOTE | 2020-06-11 12:29 | REP ---
INDICATION: SOB. COMPARISON: None. TECHNIQUE: PA and lateral views FINDINGS: The superior mediastinal structures are midline. The cardiac silhouette is unremarkable in size, shape, and position. The diaphragmatic surfaces of the lungs are regular, and the costophrenic angles are clear. The pulmonary burgess are clear. The imaged osseous structures are intact. IMPRESSION: There is no acute cardiopulmonary disease. <Electronically signed by Jeremías Mora > 06/11/20 [id number]
== END ==
LOC: M ADAMS 11:01
PROVIDERS: ATTEND Nurse Practitioner Family
DX: R06.02 Shortness of breath (principal)

== ENCOUNTER → 2020-09-04 | Outpatient (CLI) | payer BC, MEDICARE ==
--- NOTE | 2020-09-04 09:10 | REP ---
INDICATION: AAA. COMPARISON: 02/08/2020 also without intravenous contrast TECHNIQUE: Limited noncontrast enhanced helical CT FINDINGS: There is a new 6 mm size nodule in left lung base. Scattered asymmetric densities are also seen in the lung bases representing a change from the prior exam. Note is again made of cylindrical bronchiectasis. Limited evaluation of the solid intra-organs and gallbladder show no significant changes. Limited evaluation of the pancreas, adrenal glands, and kidneys show no significant changes. There are multiple bilateral renal cysts which appear stable. Limited evaluation of the abdominal aorta shows an infrarenal abdominal aortic aneurysm which measures 4.2 cm in its AP dimension. The aneurysm appears stable in length. There is no evidence of a para aortic abnormality. There is no change in the appearance of the calcific atherosclerotic change. Limited evaluation of the bowel loops and the mesenteries show no significant changes. There is no free fluid or free air. No mass or adenopathy has developed. There is no significant change in the osseous structures. There is evidence of a large left-sided hydrocele or possibly a spermatocele. CT cannot effectively evaluate this area. IMPRESSION: 1. Lung base findings as described above. There is a new nodule in the left lower lobe. Diagnostic CT exam examination of the chest is recommended as per the revised Fleischner society criteria. 2. The infrarenal abdominal aortic aneurysm appears to have increased 1 mm in size. 3. Other findings as described above. Prior testicular ultrasound of 03/14/2019 did show a large left-sided spermatocele. Consider ultrasonographic follow-up. <Electronically signed by Jeremías Mora > 09/04/20 [id number]
== END ==
LOC: M RAD 08:20
PROVIDERS: ATTEND Physician Assistant
DX: I71.4 Abdominal aortic aneurysm, without rupture (principal); R91.1 Solitary pulmonary nodule; N28.1 Cyst of kidney, acquired

== ENCOUNTER → 2020-11-05 | Outpatient (CLI) | payer BC, MEDICARE ==
[~2020-11-05] MED LIST changes: +OMEP40CA4 PO; -OMEP40CA97 PO
== END ==
LOC: M PLARAD 07:24
PROVIDERS: ATTEND Nurse Practitioner Adult Health
DX: R91.8 Other nonspecific abnormal finding of lung field (principal); Z87.891 Personal history of nicotine dependence

== ENCOUNTER → 2020-11-26 | Outpatient (CLI) | payer BC, MEDICARE ==
--- NOTE | 2020-11-26 17:44 | REP ---
INDICATION: DIAGNOSING LUNG MASS. COMPARISON: Comparison chest CT study September 24, 2020.. TECHNIQUE: Sixty-one minutes following the intravenous injection of a 9.04 mCi dose of F-18 FDG, three-dimensional PET scintigraphy is acquired from the skull base to the proximal thighs. Triplanar noncontrast CT scanning is acquired through the same anatomic range for attenuation correction, and image registration with scan parameters optimized to minimize radiation exposure to the patient. PET scintigraphy and CT datasets were fused and displayed on a workstation with multiplanar and projection display capability. FINDINGS: Head and neck soft tissues are unremarkable. There is no abnormal hypermetabolic uptake in the hilar or mediastinal regions. No abnormal pulmonary parenchymal hypermetabolic uptake is seen. The area of curvilinear opacity in the right middle lobe is not hypermetabolic. Maximum standard uptake value here is 1.58. No other abnormal pulmonary parenchymal hypermetabolic uptake is seen. In the abdomen and pelvis, normal hepatic, splenic, gastrointestinal, and genitourinary FDG accumulation is seen. Bilateral renal cortical cysts are observed. There is a left-sided hydrocele. No abnormal hypermetabolic uptake is appreciated. An abdominal aortic aneurysm is noted incidentally measuring 4.2 cm in greatest anteroposterior diameter. IMPRESSION: Negative PET scintigraphy. 4.2 cm infrarenal abdominal aortic aneurysm. Left-sided hydrocele. The nodular opacity seen on recent CT study in the right middle lobe is not hypermetabolic follow-up is advised. <Electronically signed by Juan Chu > 11/26/20 [id number]
== END ==
LOC: M PLARAD 10:21
PROVIDERS: ATTEND Nurse Practitioner Adult Health
DX: R91.8 Other nonspecific abnormal finding of lung field (principal)

== ENCOUNTER → 2021-04-03 | Outpatient (REF) | payer BC, MEDICARE ==
[2021-04-03 13:25] LABS: BILIRUBIN,TOTAL 0.7 MG/DL (0.2-1.0); CALCIUM LEVEL 8.8 MG/DL (8.8-10.2); CHOLESTEROL RISK RATIO 3.608 (<5); CREATININE FOR GFR 1.87 MG/DL (0.70-1.30); GLOMERULAR FILTRATION RATE 37.7 (>42); POTASSIUM SERUM 5.5 MEQ/L (3.5-5.1); TOTAL PROTEIN 7.3 GM/DL (6.4-8.2)
== END ==
LOC: M LABDRWAD 12:16
PROVIDERS: ATTEND Nurse Practitioner Family
DX: I12.9 Hypertensive chronic kidney disease with stage 1 through stage 4 chronic kidney disease, or unspecified chronic kidney disease (principal); E78.2 Mixed hyperlipidemia; N18.30 Chronic kidney disease, stage 3 unspecified

== ENCOUNTER → 2021-05-01 | Outpatient (CLI) | payer BC, MEDICARE ==
--- NOTE | 2021-05-01 15:47 | REP ---
INDICATION: SDBDOMINAL AORTIC ANEURYAM. COMPARISON: Multiple the latest 09/04/2020 also without contrast TECHNIQUE: Standard helical technique without contrast FINDINGS: There are chronic lung base changes status quo. The liver, gallbladder, spleen, pancreas, adrenal glands, and kidneys are unchanged. The infrarenal abdominal aortic aneurysm which measured 4.2 cm on the prior exam does not appear to be significantly changed. Once again, the exam is limited without intravenous contrast administration. There is no significant change in appearance of the bowel loops or the mesenteries. There is a minimal left inguinal hernia status quo. There is no evidence of free fluid or free air. There is no significant change in the osseous structures. IMPRESSION: No significant change. Findings and limitations as described above. <Electronically signed by Jeremías Mora > 05/01/21 [id number]
== END ==
LOC: M RAD 14:51
PROVIDERS: ATTEND Nurse Practitioner Family
DX: I71.4 Abdominal aortic aneurysm, without rupture (principal)

== ENCOUNTER → 2021-09-16 | Outpatient (CLI) | payer BC, MEDICARE ==
[~2021-09-16] MED LIST changes: +ALBU8.5H INH; +INCR1INH INH; +MUCI600T31 PO; +MULTTAB86 PO; +SYMB16INH INH
== END ==
LOC: M LABSMTC 10:20
PROVIDERS: ATTEND Anesthesiology
DX: Z01.812 Encounter for preprocedural laboratory examination (principal); Z20.822 Contact with and (suspected) exposure to COVID-19

== ENCOUNTER 2021-09-20 07:11 | Day surgery (SDC) | payer BC, MEDICARE ==
[~2021-09-20] VITALS: Ht 160 cm; Wt 74.8 kg
[~2021-09-20 07:11] MED LIST changes: +LIDOCAINE 2% 100MG/5ML SDV (FOR ANES.) As Ordered ONE; +NS 1,000 ML IV ONE; +propofoL 200 MG/20 ML VIAL As Ordered ONE
[2021-09-20 08:45] VITALS: BP 124/95
== END 2021-09-20 08:47 | disposition home or self-care (01) ==
LOC: M OPP 07:11
PROVIDERS: ATTEND Internal Medicine Gastroenterology
DX: Z12.11 Encounter for screening for malignant neoplasm of colon (principal); Z85.038 Personal history of other malignant neoplasm of large intestine; Z86.010 Personal history of colon polyps; D12.4 Benign neoplasm of descending colon; K57.30 Diverticulosis of large intestine without perforation or abscess without bleeding; K64.8 Other hemorrhoids; Z79.02 Long term (current) use of antithrombotics/antiplatelets; Z79.51 Long term (current) use of inhaled steroids; Z79.899 Other long term (current) drug therapy; Z88.1 Allergy status to other antibiotic agents; Z88.5 Allergy status to narcotic agent; Z87.891 Personal history of nicotine dependence

== ENCOUNTER → 2021-11-27 | Outpatient (CLI) | payer BC, MEDICARE ==
[~2021-11-27] MED LIST changes: -LIDOCAINE 2% 100MG/5ML SDV (FOR ANES.) As Ordered ONE; -NS 1,000 ML IV ONE; -propofoL 200 MG/20 ML VIAL As Ordered ONE
== END ==
LOC: M PLAIMG 10:26
PROVIDERS: ATTEND Nurse Practitioner Adult Health
DX: J43.9 Emphysema, unspecified (principal); J47.9 Bronchiectasis, uncomplicated; R91.8 Other nonspecific abnormal finding of lung field

== ENCOUNTER → 2022-03-28 | Outpatient (REF) | payer BC, MEDICARE ==
[2022-03-28 13:52] LABS: ALBUMIN 3.9 GM/DL (3.2-5.2); BILIRUBIN,TOTAL 1.2 MG/DL (0.2-1.0); CALCIUM LEVEL 8.6 MG/DL (8.8-10.2); CHOLESTEROL RISK RATIO 2.84 (<5); CREATININE FOR GFR 1.91 MG/DL (0.70-1.30); GLOMERULAR FILTRATION RATE 36.7 (>42); POTASSIUM SERUM 5.4 MEQ/L (3.5-5.1); TOTAL PROTEIN 6.9 GM/DL (6.4-8.2)
== END ==
LOC: M LABDRWAD 12:30
PROVIDERS: ATTEND Nurse Practitioner Family
DX: I10 Essential (primary) hypertension (principal); E78.2 Mixed hyperlipidemia

== ENCOUNTER → 2022-05-16 | Outpatient (CLI) | payer BC, MEDICARE | LOC: M RAD 08:18 | PROVIDERS: ATTEND Surgery | DX: I71.40 Abdominal aortic aneurysm, without rupture, unspecified (principal) ==

== ENCOUNTER → 2022-11-04 | Outpatient (CLI) | payer BC, MEDICARE | LOC: M RAD 14:58 | PROVIDERS: ATTEND Nurse Practitioner Family | DX: C67.9 Malignant neoplasm of bladder, unspecified (principal); N50.3 Cyst of epididymis; N44.2 Benign cyst of testis; N43.3 Hydrocele, unspecified ==

== ENCOUNTER → 2022-12-02 | Outpatient (CLI) | payer BC, MEDICARE | LOC: M ADAMS 07:38 | PROVIDERS: ATTEND Nurse Practitioner Adult Health | DX: R91.8 Other nonspecific abnormal finding of lung field (principal); J43.9 Emphysema, unspecified ==

== ENCOUNTER → 2023-02-02 | Outpatient (REF) | payer BC, MEDICARE ==
[~2023-02-02] MED LIST changes: +HYDR-3910 PO; +LISI10TA24 PO
[2023-02-02 15:11] LABS: APPEARANCE, URINE CLEAR (CLEAR); BACTERIA, URINE AUTO NEGATIVE (NEGATIVE); BILIRUBIN, URINE AUTO NEGATIVE (NEGATIVE); BLOOD, URINE BLOOD NEGATIVE (NEGATIVE); COLOR, URINE YELLOW (YELLOW); GLUCOSE, URINE (UA) AUTO NEGATIVE (NEGATIVE); HEMATOCRIT 34.5 % (42.0-52.0); HEMOGLOBIN 10.3 g/dl (13.5-17.5); KETONE, URINE AUTO NEGATIVE (NEGATIVE); LEUKOCYTE ESTERASE, URINE AUTO TRACE (NEGATIVE); MEAN CORPUSCULAR HEMOGLOBIN 25.2 pg (27.0-33.0); MEAN CORPUSCULAR HGB CONC 29.9 g/dl (32.0-36.5); MEAN CORPUSCULAR VOLUME 84.6 fl (80.0-96.0); NITRITE, URINE AUTO NEGATIVE (NEGATIVE); PLATELET COUNT, AUTOMATED 347 10^3/uL (150-450); PROTEIN, URINE AUTO NEGATIVE (NEGATIVE); RBC, URINE AUTO 0 /HPF (0-3); RED BLOOD COUNT 4.08 10^6/uL (4.30-6.10); SPECIFIC GRAVITY URINE AUTO 1.008 (1.002-1.035); SQUAMOUS EPITHELIAL CELL UR AU 0 /HPF (0-6); UROBILINOGEN, URINE AUTO 0.2 mg/dL (0.0-2.0); WBC, URINE AUTO 2 /HPF (0-3); WHITE BLOOD COUNT 6.5 10^3/uL (4.0-10.0)
[2023-02-02 15:42] LABS: CALCIUM LEVEL 8.4 MG/DL (8.3-10.6); CREATININE FOR GFR 1.57 MG/DL (0.70-1.30)
== END ==
LOC: M LABDRWAD 14:12
PROVIDERS: ATTEND Urology
DX: Z01.818 Encounter for other preprocedural examination (principal)

== ENCOUNTER → 2023-02-02 | Outpatient (CLI) | payer BC, MEDICARE | LOC: M ADAMS 11:13 | DX: Z01.818 Encounter for other preprocedural examination (principal) ==

== ENCOUNTER → 2023-05-07 | Outpatient (REF) | payer MEDICARE, BC ==
[~2023-05-07] MED LIST changes: +BACT800T5 PO; +HYDR-3713 PO
[2023-05-07 17:25] LABS: PERCENT SATURATION 3.6 % (19.7-50.0)
== END ==
LOC: M LAB REF 15:52
PROVIDERS: ATTEND Internal Medicine Nephrology
DX: D50.9 Iron deficiency anemia, unspecified (principal)

== ENCOUNTER 2023-05-21 15:06 | Outpatient (CLI) | payer BC, MEDICARE ==
[~2023-05-21] VITALS: Ht 167.6 cm; Wt 70.5 kg
[~2023-05-21 15:06] MED LIST changes: +ALBUTEROL SULFATE 2.5MG/0.5ML INH NEB SOLN INH PRN; +EPINEPHrine INJ 1 MG/ML 1ML AMP IM PRN; +diphenhydrAMINE 50MG/ML VIAL IV PRN; +methylPREDNISolone 125MG 2ML VIAL IV PRN
[2023-05-21 15:45] VITALS: BP 171/71; O2SAT 97
[2023-05-21] MEDS ORDERED: FERRIC CARBOXYMALTOSE INJ 750 MG in NS 250 ML (>50kg) IV ONE ×3 (16:00)
[2023-05-21] MEDS ORDERED: NS 1,000 ML IV SCH (16:00)
[2023-05-21 17:34] VITALS: BP 168/78; O2SAT 97
== END 2023-05-21 17:35 ==
LOC: M INFU 15:06
PROVIDERS: ATTEND Internal Medicine Nephrology
DX: D50.9 Iron deficiency anemia, unspecified (principal); Z88.5 Allergy status to narcotic agent; Z88.1 Allergy status to other antibiotic agents
CPT/HCPCS: 96365; J1439

== ENCOUNTER → 2023-09-11 | Outpatient (REF) | payer BC, MEDICARE ==
[~2023-09-11] MED LIST changes: -ALBUTEROL SULFATE 2.5MG/0.5ML INH NEB SOLN INH PRN; -EPINEPHrine INJ 1 MG/ML 1ML AMP IM PRN; -HYDR-3910 PO; +HYDR25TA87 PO; -diphenhydrAMINE 50MG/ML VIAL IV PRN; -methylPREDNISolone 125MG 2ML VIAL IV PRN
[2023-09-14 19:08] LABS: PERCENT SATURATION 20.6 % (19.7-50.0)
== END ==
LOC: M LAB REF 17:29
PROVIDERS: ATTEND Internal Medicine Nephrology
DX: D50.9 Iron deficiency anemia, unspecified (principal)

== ENCOUNTER → 2023-12-07 | Outpatient (CLI) | payer BC, MEDICARE | LOC: M WUC 09:31 | PROVIDERS: ATTEND Nurse Practitioner Adult Health | DX: J44.9 Chronic obstructive pulmonary disease, unspecified (principal); R91.8 Other nonspecific abnormal finding of lung field; J47.9 Bronchiectasis, uncomplicated; Z98.890 Other specified postprocedural states ==

== ENCOUNTER → 2024-06-01 | Outpatient (CLI) | payer BC, MEDICARE | LOC: M RAD 13:36 | PROVIDERS: ATTEND Surgery | DX: I71.40 Abdominal aortic aneurysm, without rupture, unspecified (principal); K40.90 Unilateral inguinal hernia, without obstruction or gangrene, not specified as recurrent; N28.89 Other specified disorders of kidney and ureter ==

== ENCOUNTER → 2025-02-01 | Outpatient (CLI) | payer BC, MEDICARE | LOC: M WUC 08:04 | PROVIDERS: ATTEND Nurse Practitioner Adult Health | DX: J44.9 Chronic obstructive pulmonary disease, unspecified (principal) ==

== ENCOUNTER → 2025-03-14 | Outpatient (CLI) | payer BC, MEDICARE | LOC: M RAD 09:19 | PROVIDERS: ATTEND Nurse Practitioner Adult Health | DX: J43.9 Emphysema, unspecified (principal); R91.8 Other nonspecific abnormal finding of lung field ==

== ENCOUNTER → 2025-03-16 | Outpatient (REF) | payer BC, MEDICARE | LOC: M LAB REF 16:52 | PROVIDERS: ATTEND Nurse Practitioner Adult Health | DX: J47.1 Bronchiectasis with (acute) exacerbation (principal) ==

== ENCOUNTER → 2025-04-21 | Outpatient (CLI) | payer BC, MEDICARE | LOC: M RAD 09:41 | PROVIDERS: ATTEND Surgery | DX: I71.40 Abdominal aortic aneurysm, without rupture, unspecified (principal) ==